=== PATIENT | female | born 1955 | race Caucasian/White ===

== ENCOUNTER 2017-07-06 06:47 | Day surgery (SDC) | payer OTHER ==
[2017-07-06] MEDS: BUPIVACAINE 0.25% (MPF) 30 ML INJ INJ
[2017-07-06] MEDS ORDERED: SOD CHLORIDE 0.9% 1,000 ML IV (07:00)
[2017-07-06] MEDS ORDERED: CLINDAMYCIN 600 MG/D5W (PMX) 50 ML IVPB (07:00)
[2017-07-06] MEDS ORDERED: BUPIVACAINE 0.25% (MPF) 30 ML INJ ×2 (09:56→15:07)
[2017-07-06] MEDS ORDERED: PROPOFOL 20 ML (10:08)
[2017-07-06] MEDS ORDERED: METOCLOPRAMIDE 10 MG INJ (10:08)
[2017-07-06] MEDS ORDERED: ONDANSETRON 4 MG INJ (10:08)
[2017-07-06] MEDS ORDERED: ROPIVACAINE 0.5 % 30 ML VIAL (10:08)
[2017-07-06] MEDS ORDERED: ROCURONIUM 50 MG INJ (10:08)
[2017-07-06] MEDS ORDERED: MIDAZOLAM 1 MG/ML 2 ML INJ (10:08)
[2017-07-06] MEDS ORDERED: CEFAZOLIN 1 GM INJ (10:28)
[2017-07-06] MEDS ORDERED: DEXAMETHASONE 4 MG/ML 1 ML INJ (10:40)
[2017-07-06] MEDS ORDERED: NEOSTIGMINE 3 MG/3 ML SYRINGE (10:46)
[2017-07-06] MEDS ORDERED: ACETAMINOPHEN 1000MG/100ML IV 100 ML (10:46)
[2017-07-06] MEDS ORDERED: DIPHENHYDRAMINE 50 MG INJ IV (11:00)
[2017-07-06] MEDS ORDERED: OXYCODONE/ACETAMINOPHEN (5/325) TAB PO ×2 (11:00)
[2017-07-06] MEDS ORDERED: HYDROmorphONE (0.2 MG/ML) 10ML SYG IV (11:00)
[2017-07-06] MEDS ORDERED: MEPERIDINE 25 MG INJ IV (11:00)
[2017-07-06] MEDS ORDERED: FENTAnyl 50 MCG/ML VIAL (11:08)
[2017-07-06] MEDS: HYDROmorphONE (0.2 MG/ML) 10ML SYG IV ×3 (11:30→11:44)
[2017-07-06] MEDS: ONDANSETRON 4 MG INJ IV (11:45)
[2017-07-06] MEDS: HYDROCODONE/APAP (5/325) TAB PO (11:47)
== END 2017-07-06 13:35 | disposition home or self-care (01) ==
LOC: SDS 06:47
DX: K80.10 Calculus of gallbladder with chronic cholecystitis without obstruction (principal); I10 Essential (primary) hypertension; E78.5 Hyperlipidemia, unspecified
CPT/HCPCS: 47562; 88304